=== PATIENT | male | born 1990 | race Two or more races ===

== ENCOUNTER 2018-12-23 17:54 | Emergency (ER) | payer SELFPAY ==
[~2018-12-23] VITALS: Ht 170.2 cm; Wt 74.8 kg
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
[2018-12-23] MEDS ORDERED: KETOROLAC TROMETHAMINE INJ 30 MG/ML VIAL ONE (18:54)
[2018-12-23] MEDS ORDERED: HYDROCODONE/APAP 5/325MG 1 EACH TABLET ONE (18:54)
[2018-12-23] MEDS ORDERED: KETOROLAC TROMETHAMINE INJ 60 MG/2 ML VIAL IM ONE (19:00)
[2018-12-23] MEDS ORDERED: HYDROCODONE/APAP 5/325MG 1 EACH TABLET PO ONE (19:00)
[2018-12-23 20:25] VITALS: BP 146/29
== END 2018-12-23 20:29 | disposition home or self-care (01) ==
LOC: ER 17:57
DX: S13.4XXA Sprain of ligaments of cervical spine, initial encounter (principal); S40.022A Contusion of left upper arm, initial encounter; S40.212A Abrasion of left shoulder, initial encounter; V49.49XA Driver injured in collision with other motor vehicles in traffic accident, initial encounter; Y93.89 Activity, other specified; Y92.413 State road as the place of occurrence of the external cause; Y99.8 Other external cause status
CPT/HCPCS: 71045; 73030; 73060; 73130; 96372; 99283; J1885